=== PATIENT | male | born 1945 | race Caucasian/White ===

== ENCOUNTER 2021-01-12 06:23 | Day surgery (SDC) | payer MEDICARE, BC ==
[2021-01-12] MEDS ORDERED: Sodium Chloride 0.9% 1,000 ML IV SCH (07:00)
[2021-01-12] MEDS ORDERED: fentaNYL 100 MCG/2 ML SDV ONE (07:24)
[2021-01-12] MEDS ORDERED: Midazolam 1 MG/ML 2 ML SDV ONE (07:24)
[2021-01-12] MEDS ORDERED: Propofol 200 MG/20 ML SDV ONE (07:24)
[2021-01-12 09:02] VITALS: BP 123/56; PULSE 65
--- NOTE | 2021-01-12 10:26 | OR ---
DATE OF PROCEDURE: 01/12/2021 SURGEON: Celestino Soriano MD PROCEDURE: Colonoscopy. FINDINGS: 1. Sigmoid colon polyp, approximately 5 mm, completely removed using hot snare wire device. 2. Diverticulosis, mild, limited to sigmoid colon without evidence of infection or bleeding. RISKS: Risks, benefits, alternatives, and limitations including, but not limited to infection, bleeding, perforation along with false positives and false negatives were explained to the patient who wished to proceed. PREOPERATIVE DIAGNOSIS: Screening colonoscopy. POSTOPERATIVE DIAGNOSIS: Screening colonoscopy. PROCEDURE IN DETAIL: The patient was placed in left lateral decubitus position. Digital rectal exam was performed without abnormality. Scope was introduced and advanced atraumatically to the ileocecal valve. A photo was taken of this. Scope was brought back to the ascending, transverse, descending colon, and retroflexed. No evidence of old or new blood. No masses. The aforementioned polyp was identified and completely removed. No abnormal bleeding was noted after removal. Diverticulosis was described as mild limited to the sigmoid colon without evidence of bleeding or infection. The prep was acceptable, approximately 95% of the luminal surface could be seen. Some solid and liquid stool remaining. No abnormalities on retroflexion. The patient tolerated the procedure well. Greater than 8 minutes was spent removing the scope. Celestino Soriano MD /[id number]
== END 2021-01-12 09:03 | disposition home or self-care (01) ==
LOC: JP.SDS 06:23
PROVIDERS: ATTEND Surgery
DX: Z12.11 Encounter for screening for malignant neoplasm of colon (principal); D12.5 Benign neoplasm of sigmoid colon; K57.30 Diverticulosis of large intestine without perforation or abscess without bleeding
CPT/HCPCS: 45385; J2250; J2704; J3010; J7030